=== PATIENT | male | born 1975 | race African-American/Black ===

== ENCOUNTER 2019-04-05 11:36 | Emergency (ER) | payer OTHER ==
[~2019-04-05] VITALS: Ht 193 cm; Wt 83.9 kg
--- NOTE | 2019-04-05 11:38 | NUR ---
pt BIBRA FROM STREETS, STATES SUICIDAL, +PLAN TO OD ON PILLS, PT IS AAOX4, NOT IN RESPIRATORY DISTRESS, HOOKED TO MONITOR, KEPT RESTED AND COMFORTABLE, WILL CONTINUE TO MONITOR.
--- NOTE | 2019-04-05 11:40 | NUR ---
SI PROTOCOL INITIATED.
--- NOTE | 2019-04-05 11:44 | NUR ---
SEEN AND EXAMINED BY .
--- NOTE | 2019-04-05 11:45 | NUR ---
SECURITY AT BEDSIDE.
--- NOTE | 2019-04-05 11:53 | NUR ---
ER PHLEB AT BEDSIDE FOR BLOOD DRAW.
[2019-04-05 12:01] LABS: BASOPHILS % (AUTO) 0.3 % (0.0-2.0); EOSINOPHILS % (AUTO) 0.1 % (0.0-6.0); HEMATOCRIT 41 % (39-51); HEMOGLOBIN 13.6 g/dL (13.5-17.5); LYMPHOCYTES % (AUTO) 13.3 % (20.0-44.0); MEAN CORPUSCULAR HGB CONC 33 g/dl (31.0-36.0); MEAN CORPUSCULAR VOLUME 88 fL (80-96); MONOCYTES # (AUTO) 1.5 /CMM (0.1-1.30); MONOCYTES % (AUTO) 20.5 % (2.0-12.0); NEUTROPHILS # (AUTO) 4.9 /CMM (1.8-8.9); NEUTROPHILS % (AUTO) 65.8 % (43.0-81.0); PLATELET COUNT (AUTO) 178 /CMM (150-450); RED BLOOD CELL COUNT(AUTO) 4.67 MIL/uL (4.5-6.0); WHITE BLOOD COUNT (AUTO) 7.5 K/uL (4.3-11.0)
[2019-04-05 12:17] LABS: CARBON DIOXIDE 26 mmol/L (21-32); CHLORIDE 101 mmol/L (98-107); CREATININE 1.5 mg/dL (0.6-1.3); GLUCOSE 120 mg/dL (74-106); POTASSIUM 3.6 mmol/L (3.5-5.1); SODIUM SERUM 140 mmol/L (136-145); UREA NITROGEN, BLOOD 17 mg/dL (7-18)
[2019-04-05 12:29] LABS: ALANINE AMINOTRANSFERASE 39 U/L (12-78); ALBUMIN 4.3 g/dL (3.4-5.0); ALCOHOL, BLOOD < 3 mg/dL (0-0); ALKALINE PHOSPHATASE 49 U/L (46-116); ASPARTATE AMINOTRANSFERASE 60 U/L (15-37); BILIRUBIN,DIRECT 0.1 mg/dL (0.0-0.2); BILIRUBIN,TOTAL 0.6 mg/dL (0.2-1.0); TOTAL PROTEIN, SERUM 8.1 g/dL (6.4-8.2)
--- NOTE | 2019-04-05 12:31 | NUR ---
URINE SPECIMEN COLLECTED AND SENT TO LAB.
[2019-04-05 12:32] LABS: ACETAMINOPHEN 0 ug/ml (10-30)
[2019-04-05 12:41] LABS: APPEARANCE,URINE Clear (CLEAR); BILIRUBIN,URINE Negative (NEGATIVE); BLOOD, URINE Negative Ery/uL (NEGATIVE); COLOR,URINE Yellow (YELLOW); KETONES,URINE Negative (NEGATIVE); LEUKOCYTE ESTERASE ,URINE Negative (NEGATIVE); NITRITE, URINE Negative (NEGATIVE); PROTEIN,URINE Negative (NEGATIVE); UGLUCOSE Negative (NEGATIVE); UROBILINOGEN,URINE 0.2 EU/dL (0.2)
--- NOTE | 2019-04-05 13:06 | NUR ---
SPOKED TO [facility] OF [facility]TA[facility] FOR AVAILABLE BED, CLINICALS AND FACESHEET FAXED.
--- NOTE | 2019-04-05 14:02 | NUR ---
SPOKE TO ANNELIESE FROM [facility] INTAKE WITH AN UPDATE ON THE PT'S INSURANCE. FAXED THEM UPDATED INFO.
--- NOTE | 2019-04-05 14:03 | NUR ---
UPDATED CLINICALS AND FACE SHEET FAXED TO [facility].
--- NOTE | 2019-04-05 14:05 | NUR ---
FOOD TRAY PROVIDED.
--- NOTE | 2019-04-05 14:26 | NUR ---
SPOKED TO KAMI OF [facility], WILL CALL BACK FOR BED AVAILABILITY.
--- NOTE | 2019-04-05 15:57 | NUR ---
PT IS AWAKE AND ALERT, NOT IN RESPIRATORY DISTRESS, V/S STABLE, AWAITING CALL BACK FROM [facility] FOR BED AVAILABILITY.
--- NOTE | 2019-04-05 16:06 | NUR ---
PT IS ACCEPTED AT [facility] MD: AND DR. TORRES PER [facility] INTAKE GIVE REPORT AT 1900H # FOR REORT: [phone]
--- NOTE | 2019-04-05 18:16 | NUR ---
ARRANGED BLS TRANSPORT WITH [facility] TO [facility], TRIP NUMBER: [id number] ETA [id number].
--- NOTE | 2019-04-05 18:25 | NUR ---
REPORT GIVEN TO GERMANIA CAMARILLO OF [facility].
[2019-04-05 18:39] VITALS: BP 143/92
--- NOTE | 2019-04-05 18:39 | NUR ---
REPORT GIVEN TO EMT FOR PT TRANSFER TO [facility].
== END 2019-04-05 18:40 | disposition home or self-care (01) ==
LOC: ER 11:40
DX: R45.851 Suicidal ideations (principal); F20.9 Schizophrenia, unspecified
CPT/HCPCS: 36415; 80048; 80076; 80305; 80307; 80329; 81001; 85025; 99284; G0480; 81000-TC